=== PATIENT | female | born 1995 | race Caucasian/White ===

== ENCOUNTER → 2020-01-04 | Outpatient (CLI) | payer OTHER ==
[2019-09-04 18:00] VITALS: BP 110/62
[~2020-01-04] MED LIST: CEPH500C PO; FAMO-63 PO; METR500T PO; ONDA4TAB10 SL; ONDA4TAB12 PO; SULF1TAB24 PO
[2020-01-04 10:33] LABS: BASO % 0 % (0-3); EOS # 0.1 x10^3/uL (0.0-0.7); EOS % 1 % (0-3); HEMATOCRIT 39.6 % (36.0-47.0); HEMOGLOBIN 13.6 g/dL (12.0-15.5); LYMPH # 1.6 x10^3/uL (1.0-4.8); LYMPH % 18 % (24-48); MEAN CORPUSCULAR HEMOGLOBIN 30 pg (25-35); MEAN CORPUSCULAR HGB CONC 34 g/dL (31-37); MEAN CORPUSCULAR VOLUME 87 fL (79-100); MONO # 0.6 x10^3/uL (0.0-1.1); MONO % 7 % (0-9); NEUT # 6.8 x10^3/uL (1.8-7.7); NEUT % 74 % (31-73); PLATELET COUNT 281 x10^3/uL (140-400); RED BLOOD COUNT 4.58 x10^6/uL (3.50-5.40); RED CELL DISTRIBUTION WIDTH 13.2 % (11.5-14.5); WHITE BLOOD COUNT 9.2 x10^3/uL (4.0-11.0)
== END ==
LOC: MERGE 09:03 → LAB 09:03
PROVIDERS: ATTEND Obstetrics & Gynecology
DX: O09.90 Supervision of high risk pregnancy, unspecified, unspecified trimester (principal); Z3A.00 Weeks of gestation of pregnancy not specified
CPT/HCPCS: 36415; 82950; 85025

== ENCOUNTER 2020-02-15 10:18 | Inpatient (IN) | payer OTHER ==
[~2020-02-15] VITALS: Ht 160 cm; Wt 93.0 kg
[2020-02-15 10:45] VITALS: BP 133/74
[2020-02-15 11:12] LABS: CREATININE,RANDOM URINE 185.5 mg/dL (Not Establ.)
[2020-02-15 11:31] LABS: BASO # 0.1 x10^3/uL (0.0-0.2); BASO % 1 % (0-3); EOS # 0.1 x10^3/uL (0.0-0.7); EOS % 1 % (0-3); HEMATOCRIT 38.2 % (36.0-47.0); HEMOGLOBIN 13.3 g/dL (12.0-15.5); LYMPH # 1.5 x10^3/uL (1.0-4.8); LYMPH % 16 % (24-48); MEAN CORPUSCULAR HEMOGLOBIN 30 pg (25-35); MEAN CORPUSCULAR HGB CONC 35 g/dL (31-37); MEAN CORPUSCULAR VOLUME 85 fL (79-100); MONO # 0.8 x10^3/uL (0.0-1.1); MONO % 8 % (0-9); NEUT # 6.8 x10^3/uL (1.8-7.7); NEUT % 74 % (31-73); PLATELET COUNT 261 x10^3/uL (140-400); RED BLOOD COUNT 4.48 x10^6/uL (3.50-5.40); RED CELL DISTRIBUTION WIDTH 13.7 % (11.5-14.5); WHITE BLOOD COUNT 9.2 x10^3/uL (4.0-11.0)
[2020-02-15 11:43] LABS: ALBUMIN 2.2 g/dL (3.4-5.0); ALBUMIN/GLOBULIN RATIO 0.5 (1.0-1.7); CALCIUM 8.5 mg/dL (8.5-10.1); CREATININE 0.8 mg/dL (0.6-1.0); GFR 88.9; POTASSIUM 4.5 mmol/L (3.5-5.1); TOTAL BILIRUBIN 0.2 mg/dL (0.2-1.0); TOTAL PROTEIN 6.5 g/dL (6.4-8.2)
--- NOTE | 2020-02-15 12:03 | PDOC1 ---
OB - History Hx of Present Care: Good Care Ultrasounds: Normal mid trimester US Obstetrical Complications: Pre-eclampsia Medical Complications: None Past Family/Social History * Past Medical, Surgical, Family and Obstetric Histories reviewed from chart. Rubella: Immune RPR/VDRL: Negative GBS Status: Negative HBsAG: Negative OB - Chief Complaint & HPI Date of Admission: Date of Admission: Feb 15, 2020 at 10:18 Chief Complaint/History : 2 Para: 0 EGA: 38 Reason for admission: induction of labor (preeclampsia) Admission Nurse Assessment Rev: Yes OB - Admission Exam Physical Exam HEENT: Normal Heart: Regular Rate Lungs: Clear Abdomen: Gravid, Non tender, Soft Extremities: Edema Reflexes: Normal Cervical Dilatation: 3cm Effacement: 75% Station: -3 Membranes: Intact Heart Rate: Normal Accelerations: Accelerations Present Decelerations: No decelerations Contractions on Admission: None Text A: 38 wks IUP Preeclampsia P: Admit for induction pitocin. Start magnesium sulfate. JELENA WILSON Jr, MD Feb 15, 2020 12:03
[2020-02-15] MEDS ORDERED: fentaNYL PF VIAL 100 MCG/2 ML VIAL IVP PRN (12:30)
[2020-02-15] MEDS ORDERED: OXYTOCIN 30 UNIT/500 ML PREMIX 500 ML IV PRN ×2 (12:30)
[2020-02-15] MEDS ORDERED: IBUPROFEN 400 MG TABLET. PO PRN (12:30)
[2020-02-15] MEDS ORDERED: ONDANSETRON PF 4 MG/2 ML VIAL. IVP PRN (12:30)
[2020-02-15] MEDS ORDERED: LIDOCAINE 1% PF 30 ML VIAL. INJ PRN (12:30)
[2020-02-15] MEDS ORDERED: BUTORPHANOL 2 MG/ML VIAL. IVP PRN ×2 (12:30)
[2020-02-15] MEDS ORDERED: 0.9 % SODIUM CHLORIDE 10 ML DISP.SYRIN. IV PRN (12:30)
[2020-02-15] MEDS ORDERED: TERBUTALINE 1 MG/ML VIAL. SQ PRN (12:30)
[2020-02-15] MEDS ORDERED: MAGNESIUM SULFATE 4GM 100 ML IV ONE (12:30)
[2020-02-15] MEDS ORDERED: PREN-2 PO (13:10)
[2020-02-15] MEDS: IV RINGERS,LACTATED 1000ML 1,000 ML IV SCH ×2 (13:14→23:39)
[2020-02-15] MEDS ORDERED: CITRIC ACID/SODIUM CITRATE 30 ML SOLUTION. PO ONE (13:45)
[2020-02-15] MEDS ORDERED: SODIUM BICARB ADULT 8.4% 50 MEQ/50 ML DISP.SYRIN. ONE (14:08)
[2020-02-15] MEDS: MAGNESIUM SULFATE 20GM 500 ML IV SCH (14:23)
[2020-02-15] MEDS: fentaNYL PF VIAL 100 MCG/2 ML VIAL IVP PRN ×2 (22:06→23:34)
[2020-02-16] MEDS ORDERED: IV RINGERS,LACTATED 1000ML 1,000 ML IV ONE (01:10)
[2020-02-16] MEDS ORDERED: ROPIVacaine 0.2% PF 10 ML VIAL. ONE ×2 (01:12→02:00)
[2020-02-16] MEDS ORDERED: ePHEDrine PF IN SALINE 50 MG/10 ML SYRINGE. IV PRN (01:15)
[2020-02-16] MEDS ORDERED: NALOXONE 0.4 MG/ML VIAL. IV PRN (01:15)
[2020-02-16] MEDS ORDERED: ONDANSETRON PF 4 MG/2 ML VIAL. IV PRN (01:15)
[2020-02-16] MEDS: L&D EPIDURAL SYRINGE 50 ML EPID PRN ×2 (01:36→04:38)
[2020-02-16] MEDS: MAGNESIUM SULFATE 20GM 500 ML IV SCH ×2 (01:39→13:36)
--- NOTE | 2020-02-16 06:28 | PDOC ---
VAGINAL DELIVERY DATE DATE: 02/16/20 TIME: 06:26 : 2 Para: 1 EGA: 38 VAGINAL DELIVERY: VTX VACCUM ASSISTED: No PLACENTA: Spontaneous 8/9 SEX: Male WEIGHT Weight [ 3200 gm] Nuchal Cord: No Amniotic Fluid: Clear PAIN: Epidural EPISIOTOMY: No EXTENSION: Yes (Left vaginal sidewall laceration) REPAIRED WITH 2-0 vicryl EBL 300 ml COMPLICATIONS none CONDITION pt. stable Signs of Intrauterine Infectio: None Shoulder Dystocia: No JELENA WILSON Jr, MD Feb 16, 2020 06:27
[2020-02-16] MEDS ORDERED: MAG HYDROX/ALUMINUM HYD/SIMETH 30 ML ORAL.SUSP PO PRN (06:30)
[2020-02-16] MEDS ORDERED: MMR per PROTOCOL. MC PRN (06:30)
[2020-02-16] MEDS ORDERED: oxyCODONE/APAP 5/325 1 TAB TABLET PO PRN (06:30)
[2020-02-16] MEDS ORDERED: ACETAMINOPHEN 325 MG TABLET. PO PRN (06:30)
[2020-02-16] MEDS ORDERED: ZOLPIDEM 5 MG TABLET. PO PRN (06:30)
[2020-02-16] MEDS ORDERED: TDaP (Adacel) per PROTOCOL. MC PRN (06:30)
[2020-02-16] MEDS ORDERED: MAGNESIUM HYDROXIDE 2,400 MG/30 ML ORAL.SUSP. PO PRN (06:30)
[2020-02-16] MEDS ORDERED: BENZOCAINE 20% TOPICAL AEROSOL SPRAY 57GM CAN. TP PRN (06:30)
[2020-02-16] MEDS ORDERED: PHENYLEPH/MINERAL OIL/PETROLAT RECTAL OINTMENT TUBE. RC PRN (06:30)
[2020-02-16] MEDS ORDERED: SIMETHICONE 80 MG TAB.CHEW PO PRN (06:30)
[2020-02-16] MEDS ORDERED: 0.9 % SODIUM CHLORIDE 10 ML DISP.SYRIN. IV PRN (06:30)
[2020-02-16] MEDS ORDERED: OXYTOCIN 30 UNIT/500 ML PREMIX 500 ML IV PRN (06:30)
[2020-02-16] MEDS ORDERED: diphenhydrAMINE HCL 25 MG CAPSULE PO PRN (06:30)
[2020-02-16] MEDS ORDERED: HYDROCORTISONE 1% TOPICAL OINTMENT 30GM TUBE. TP PRN (06:30)
[2020-02-16] MEDS: IBUPROFEN 400 MG TABLET. PO PRN (08:36)
[2020-02-16] MEDS ORDERED: MULTIVITAMIN with MINERAL TABLET. PO SCH (09:00)
[2020-02-16 11:05] LABS: BASO # 0.1 x10^3/uL (0.0-0.2); BASO % 0 % (0-3); EOS % 0 % (0-3); HEMATOCRIT 33.8 % (36.0-47.0); HEMOGLOBIN 11.5 g/dL (12.0-15.5); LYMPH # 0.8 x10^3/uL (1.0-4.8); LYMPH % 3 % (24-48); MEAN CORPUSCULAR HEMOGLOBIN 29 pg (25-35); MEAN CORPUSCULAR HGB CONC 34 g/dL (31-37); MEAN CORPUSCULAR VOLUME 86 fL (79-100); MONO # 1.6 x10^3/uL (0.0-1.1); MONO % 7 % (0-9); NEUT # 20.4 x10^3/uL (1.8-7.7); NEUT % 89 % (31-73); PLATELET COUNT 254 x10^3/uL (140-400); RED BLOOD COUNT 3.92 x10^6/uL (3.50-5.40); RED CELL DISTRIBUTION WIDTH 13.5 % (11.5-14.5); WHITE BLOOD COUNT 22.8 x10^3/uL (4.0-11.0)
[2020-02-16 11:33] LABS: % BANDS 9 % (0-9); % LYMPHS 2 % (24-48); % MONOS 3 % (0-10); % SEGS 86 % (35-66); ALBUMIN 1.8 g/dL (3.4-5.0); ALBUMIN/GLOBULIN RATIO 0.5 (1.0-1.7); CREATININE 1.1 mg/dL (0.6-1.0); GFR 61.6; POTASSIUM 3.6 mmol/L (3.5-5.1); TOTAL BILIRUBIN 0.3 mg/dL (0.2-1.0); TOTAL PROTEIN 5.4 g/dL (6.4-8.2)
[2020-02-16 11:34] LABS: PLT ESTIMATE ADEQUATE (ADEQUATE)
[2020-02-16 15:35] VITALS: BP 138/73
[2020-02-16] MEDS: IV RINGERS,LACTATED 1000ML 1,000 ML IV SCH (16:50)
[2020-02-16 17:30] VITALS: BP 139/78
[2020-02-16 19:30] VITALS: BP 135/68
[2020-02-16 21:25] VITALS: BP 147/88
[2020-02-16 22:25] VITALS: BP 113/65
[2020-02-16 23:45] VITALS: BP 131/72
[2020-02-17] MEDS: MAGNESIUM SULFATE 20GM 500 ML IV SCH (00:15)
[2020-02-17 02:13] VITALS: BP 121/51
[2020-02-17 04:19] VITALS: BP 116/57
[2020-02-17 05:28] LABS: BASO % 0 % (0-3); EOS # 0.1 x10^3/uL (0.0-0.7); EOS % 1 % (0-3); HEMATOCRIT 29.2 % (36.0-47.0); HEMOGLOBIN 10.2 g/dL (12.0-15.5); LYMPH # 1.9 x10^3/uL (1.0-4.8); LYMPH % 13 % (24-48); MEAN CORPUSCULAR HEMOGLOBIN 30 pg (25-35); MEAN CORPUSCULAR HGB CONC 35 g/dL (31-37); MEAN CORPUSCULAR VOLUME 86 fL (79-100); MONO # 1.3 x10^3/uL (0.0-1.1); MONO % 9 % (0-9); NEUT % 77 % (31-73); PLATELET COUNT 217 x10^3/uL (140-400); RED BLOOD COUNT 3.41 x10^6/uL (3.50-5.40); RED CELL DISTRIBUTION WIDTH 13.8 % (11.5-14.5); WHITE BLOOD COUNT 14.3 x10^3/uL (4.0-11.0)
[2020-02-17 05:50] VITALS: BP 112/60
--- NOTE | 2020-02-17 05:51 | NUR ---
RN NOTE: Patient has 2+ edema bilaterally on upper and lower legs, ankles and feet.
[2020-02-17 05:52] LABS: ALBUMIN 1.8 g/dL (3.4-5.0); ALBUMIN/GLOBULIN RATIO 0.6 (1.0-1.7); ALK PHOS 166 U/L (46-116); ALT (SGPT) 19 U/L (14-59); ANION GAP 8 (6-14); AST (SGOT) 25 U/L (15-37); BLOOD UREA NITROGEN 9 mg/dL (7-20); BUN/CREATININE RATIO 11 (6-20); CALCIUM 6.5 mg/dL (8.5-10.1); CARBON DIOXIDE 24 mmol/L (21-32); CHLORIDE 104 mmol/L (98-107); CREATININE 0.8 mg/dL (0.6-1.0); GFR 88.9; GLUCOSE 117 mg/dL (70-99); POTASSIUM 4.1 mmol/L (3.5-5.1); SODIUM 136 mmol/L (136-145); TOTAL BILIRUBIN < 0.1 mg/dL (0.2-1.0); TOTAL PROTEIN 4.6 g/dL (6.4-8.2)
[2020-02-17] MEDS: IBUPROFEN 400 MG TABLET. PO PRN ×2 (07:21→17:59)
[2020-02-17] MEDS: DOCUSATE SODIUM 100 MG CAPSULE. PO PRN ×2 (07:21→18:00)
[2020-02-17] MEDS: FERROUS SULFATE 325 MG TABLET. PO SCH ×2 (07:21→17:59)
--- NOTE | 2020-02-17 08:44 | PDOC ---
OB Progress Note Date of Service 02/17/20 Time of Evaluation 0845 Notes Pt. feeling better. No CP, H/A or SOB. Pain controlled. Lab Laboratory Tests Test 02/15/20 10:35 02/15/20 11:06 02/15/20 11:15 02/15/20 13:00 Urine Random Creatinine 185.5 mg/dL (Not Establ.) Urine Random Total Protein 70.5 mg/dL (Not Establ.) Urine Protein/Creatinine Ratio 380 mg/g (0-200) Coronavirus (COVID-19)(PCR) Negative (NEGATIVE) White Blood Count 9.2 x10^3/uL (4.0-11.0) Red Blood Count 4.48 x10^6/uL (3.50-5.40) Hemoglobin 13.3 g/dL (12.0-15.5) Hematocrit 38.2 % (36.0-47.0) Mean Corpuscular Volume 85 fL (79-100) Mean Corpuscular Hemoglobin 30 pg (25-35) Mean Corpuscular Hemoglobin Concent 35 g/dL (31-37) Red Cell Distribution Width 13.7 % (11.5-14.5) Platelet Count 261 x10^3/uL (140-400) Neutrophils (%) (Auto) 74 % (31-73) Lymphocytes (%) (Auto) 16 % (24-48) Monocytes (%) (Auto) 8 % (0-9) Eosinophils (%) (Auto) 1 % (0-3) Basophils (%) (Auto) 1 % (0-3) Neutrophils # (Auto) 6.8 x10^3/uL (1.8-7.7) Lymphocytes # (Auto) 1.5 x10^3/uL (1.0-4.8) Monocytes # (Auto) 0.8 x10^3/uL (0.0-1.1) Eosinophils # (Auto) 0.1 x10^3/uL (0.0-0.7) Basophils # (Auto) 0.1 x10^3/uL (0.0-0.2) Sodium Level 132 mmol/L (136-145) Potassium Level 4.5 mmol/L (3.5-5.1) Chloride Level 102 mmol/L (98-107) Carbon Dioxide Level 21 mmol/L (21-32) Anion Gap 9 (6-14) Blood Urea Nitrogen 10 mg/dL (7-20) Creatinine 0.8 mg/dL (0.6-1.0) Estimated GFR (Cockcroft-Gault) 88.9 BUN/Creatinine Ratio 13 (6-20) Glucose Level 90 mg/dL (70-99) Calcium Level 8.5 mg/dL (8.5-10.1) Total Bilirubin 0.2 mg/dL (0.2-1.0) Aspartate Amino Transf (AST/SGOT) 21 U/L (15-37) Alanine Aminotransferase (ALT/SGPT) 23 U/L (14-59) Alkaline Phosphatase 200 U/L (46-116) Total Protein 6.5 g/dL (6.4-8.2) Albumin 2.2 g/dL (3.4-5.0) Albumin/Globulin Ratio 0.5 (1.0-1.7) Treponema pallidum Antibody Nonreactive (Nonreactive) Test 02/16/20 10:55 02/17/20 05:20 White Blood Count 22.8 x10^3/uL (4.0-11.0) 14.3 x10^3/uL (4.0-11.0) Red Blood Count 3.92 x10^6/uL (3.50-5.40) 3.41 x10^6/uL (3.50-5.40) Hemoglobin 11.5 g/dL (12.0-15.5) 10.2 g/dL (12.0-15.5) Hematocrit 33.8 % (36.0-47.0) 29.2 % (36.0-47.0) Mean Corpuscular Volume 86 fL (79-100) 86 fL (79-100) Mean Corpuscular Hemoglobin 29 pg (25-35) 30 pg (25-35) Mean Corpuscular Hemoglobin Concent 34 g/dL (31-37) 35 g/dL (31-37) Red Cell Distribution Width 13.5 % (11.5-14.5) 13.8 % (11.5-14.5) Platelet Count 254 x10^3/uL (140-400) 217 x10^3/uL (140-400) Neutrophils (%) (Auto) 89 % (31-73) 77 % (31-73) Lymphocytes (%) (Auto) 3 % (24-48) 13 % (24-48) Monocytes (%) (Auto) 7 % (0-9) 9 % (0-9) Eosinophils (%) (Auto) 0 % (0-3) 1 % (0-3) Basophils (%) (Auto) 0 % (0-3) 0 % (0-3) Neutrophils # (Auto) 20.4 x10^3/uL (1.8-7.7) 11.0 x10^3/uL (1.8-7.7) Lymphocytes # (Auto) 0.8 x10^3/uL (1.0-4.8) 1.9 x10^3/uL (1.0-4.8) Monocytes # (Auto) 1.6 x10^3/uL (0.0-1.1) 1.3 x10^3/uL (0.0-1.1) Eosinophils # (Auto) 0.0 x10^3/uL (0.0-0.7) 0.1 x10^3/uL (0.0-0.7) Basophils # (Auto) 0.1 x10^3/uL (0.0-0.2) 0.0 x10^3/uL (0.0-0.2) Segmented Neutrophils % 86 % (35-66) Band Neutrophils % 9 % (0-9) Lymphocytes % 2 % (24-48) Monocytes % 3 % (0-10) Platelet Estimate Adequate (ADEQUATE) Sodium Level 131 mmol/L (136-145) 136 mmol/L (136-145) Potassium Level 3.6 mmol/L (3.5-5.1) 4.1 mmol/L (3.5-5.1) Chloride Level 100 mmol/L (98-107) 104 mmol/L (98-107) Carbon Dioxide Level 22 mmol/L (21-32) 24 mmol/L (21-32) Anion Gap 9 (6-14) 8 (6-14) Blood Urea Nitrogen 10 mg/dL (7-20) 9 mg/dL (7-20) Creatinine 1.1 mg/dL (0.6-1.0) 0.8 mg/dL (0.6-1.0) Estimated GFR (Cockcroft-Gault) 61.6 88.9 BUN/Creatinine Ratio 9 (6-20) 11 (6-20) Glucose Level 137 mg/dL (70-99) 117 mg/dL (70-99) Calcium Level 7.0 mg/dL (8.5-10.1) 6.5 mg/dL (8.5-10.1) Total Bilirubin 0.3 mg/dL (0.2-1.0) < 0.1 mg/dL (0.2-1.0) Aspartate Amino Transf (AST/SGOT) 25 U/L (15-37) 25 U/L (15-37) Alanine Aminotransferase (ALT/SGPT) 19 U/L (14-59) 19 U/L (14-59) Alkaline Phosphatase 172 U/L (46-116) 166 U/L (46-116) Total Protein 5.4 g/dL (6.4-8.2) 4.6 g/dL (6.4-8.2) Albumin 1.8 g/dL (3.4-5.0) 1.8 g/dL (3.4-5.0) Albumin/Globulin Ratio 0.5 (1.0-1.7) 0.6 (1.0-1.7) Laboratory Tests Test 02/16/20 10:55 02/17/20 05:20 White Blood Count 22.8 x10^3/uL (4.0-11.0) 14.3 x10^3/uL (4.0-11.0) Red Blood Count 3.92 x10^6/uL (3.50-5.40) 3.41 x10^6/uL (3.50-5.40) Hemoglobin 11.5 g/dL (12.0-15.5) 10.2 g/dL (12.0-15.5) Hematocrit 33.8 % (36.0-47.0) 29.2 % (36.0-47.0) Mean Corpuscular Volume 86 fL (79-100) 86 fL (79-100) Mean Corpuscular Hemoglobin 29 pg (25-35) 30 pg (25-35) Mean Corpuscular Hemoglobin Concent 34 g/dL (31-37) 35 g/dL (31-37) Red Cell Distribution Width 13.5 % (11.5-14.5) 13.8 % (11.5-14.5) Platelet Count 254 x10^3/uL (140-400) 217 x10^3/uL (140-400) Neutrophils (%) (Auto) 89 % (31-73) 77 % (31-73) Lymphocytes (%) (Auto) 3 % (24-48) 13 % (24-48) Monocytes (%) (Auto) 7 % (0-9) 9 % (0-9) Eosinophils (%) (Auto) 0 % (0-3) 1 % (0-3) Basophils (%) (Auto) 0 % (0-3) 0 % (0-3) Neutrophils # (Auto) 20.4 x10^3/uL (1.8-7.7) 11.0 x10^3/uL (1.8-7.7) Lymphocytes # (Auto) 0.8 x10^3/uL (1.0-4.8) 1.9 x10^3/uL (1.0-4.8) Monocytes # (Auto) 1.6 x10^3/uL (0.0-1.1) 1.3 x10^3/uL (0.0-1.1) Eosinophils # (Auto) 0.0 x10^3/uL (0.0-0.7) 0.1 x10^3/uL (0.0-0.7) Basophils # (Auto) 0.1 x10^3/uL (0.0-0.2) 0.0 x10^3/uL (0.0-0.2) Segmented Neutrophils % 86 % (35-66) Band Neutrophils % 9 % (0-9) Lymphocytes % 2 % (24-48) Monocytes % 3 % (0-10) Platelet Estimate Adequate (ADEQUATE) Sodium Level 131 mmol/L (136-145) 136 mmol/L (136-145) Potassium Level 3.6 mmol/L (3.5-5.1) 4.1 mmol/L (3.5-5.1) Chloride Level 100 mmol/L (98-107) 104 mmol/L (98-107) Carbon Dioxide Level 22 mmol/L (21-32) 24 mmol/L (21-32) Anion Gap 9 (6-14) 8 (6-14) Blood Urea Nitrogen 10 mg/dL (7-20) 9 mg/dL (7-20) Creatinine 1.1 mg/dL (0.6-1.0) 0.8 mg/dL (0.6-1.0) Estimated GFR (Cockcroft-Gault) 61.6 88.9 BUN/Creatinine Ratio 9 (6-20) 11 (6-20) Glucose Level 137 mg/dL (70-99) 117 mg/dL (70-99) Calcium Level 7.0 mg/dL (8.5-10.1) 6.5 mg/dL (8.5-10.1) Total Bilirubin 0.3 mg/dL (0.2-1.0) < 0.1 mg/dL (0.2-1.0) Aspartate Amino Transf (AST/SGOT) 25 U/L (15-37) 25 U/L (15-37) Alanine Aminotransferase (ALT/SGPT) 19 U/L (14-59) 19 U/L (14-59) Alkaline Phosphatase 172 U/L (46-116) 166 U/L (46-116) Total Protein 5.4 g/dL (6.4-8.2) 4.6 g/dL (6.4-8.2) Albumin 1.8 g/dL (3.4-5.0) 1.8 g/dL (3.4-5.0) Albumin/Globulin Ratio 0.5 (1.0-1.7) 0.6 (1.0-1.7) Medications Current Medications Sodium Chloride (Normal Saline Flush) 3 ml QSHIFT PRN IV AFTER MEDS AND BLOOD DRAWS; Start 02/15/20 at 12:30 Ringer's Solution 1,000 ml @ 125 mls/hr Q8H IV Last administered on 02/16/20at 16:50; Start 02/15/20 at 12:21 Butorphanol Tartrate (Stadol) 1 mg PRN Q1HR PRN IVP mild to moderate labor pain; Start 02/15/20 at 12:30 Butorphanol Tartrate (Stadol) 2 mg PRN Q1HR PRN IVP Severe labor pain; Start 02/15/20 at 12:30 Fentanyl Citrate (Fentanyl 2ml Vial) 50 mcg PRN Q30MIN PRN IVP Mild to moderate pain; Start 02/15/20 at 12:30 Fentanyl Citrate (Fentanyl 2ml Vial) 100 mcg PRN Q30MIN PRN IVP Severe pain Last administered on 02/15/20at 23:34; Start 02/15/20 at 12:30 Ondansetron HCl (Zofran) 4 mg PRN Q4HRS PRN IVP NAUSEA/VOMITING Last administered on 02/15/20at 21:28; Start 02/15/20 at 12:30 Terbutaline Sulfate (Brethine) 0.25 mg 1X PRN PRN SQ SEE COMMENTS; Start 02/15/20 at 12:30; Stop 02/16/20 at 12:29; Status DC Lidocaine HCl (Xylocaine 1% Pf 30ml Vial) 30 ml 1X PRN PRN INJ SEE COMMENTS; Start 02/15/20 at 12:30; Stop 02/17/20 at 12:29 Oxytocin/Sodium Chloride 500 ml @ 0 mls/hr CONT PRN IV SEE I/O RECORD Last administered on 02/15/20at 13:27; Start 02/15/20 at 12:30 Oxytocin/Sodium Chloride 500 ml @ 0 mls/hr CONT PRN PRN IV Post delivery bleeding; Start 02/15/20 at 12:30 Ibuprofen (Motrin) 800 mg PRN Q6HRS PRN PO PAIN; Start 02/15/20 at 12:30; Stop 02/16/20 at 06:40; Status DC Magnesium Sulfate 100 ml @ 25 mls/hr 1X ONCE IV Last administered on 02/15/20at 13:28; Start 02/15/20 at 12:30; Stop 02/15/20 at 16:29; Status DC Magnesium Sulfate 500 ml @ 50 mls/hr Q10H IV Last administered on 02/17/20at 00:15; Start 02/15/20 at 12:30 Citric Acid/ Sodium Citrate (Bicitra) 30 ml 1X ONCE PO Last administered on 02/15/20at 13:51; Start 02/15/20 at 13:45; Stop 02/15/20 at 13:56; Status DC Sodium Bicarbonate (Sodium Bicarb Adult 8.4% Syr) 50 meq STK-MED ONCE .ROUTE ; Start 02/15/20 at 14:08; Stop 02/15/20 at 14:09; Status Cancel Ringer's Solution 1,000 ml @ 0 mls/hr Q0M ONCE IV Last administered on 02/16/20at 02:15; Start 02/16/20 at 01:10; Stop 02/16/20 at 01:14; Status DC Ephedrine Sulfate (ePHEDrine PF IN SALINE SYRINGE) 10 mg PRN Q2MIN PRN IV IF SBP<90; Start 02/16/20 at 01:15 Naloxone HCl (Narcan) 0.04 mg PRN Q1MIN PRN IV SEE COMMENTS; Start 02/16/20 at 01:15 Fentanyl Citrate 50 ml @ 14 mls/hr CONT PRN EPID PAIN Last administered on 02/16/20at 04:38; Start 02/16/20 at 01:15 Ondansetron HCl (Zofran) 4 mg PRN Q6HRS PRN IV NAUSEA/VOMITING; Start 02/16/20 at 01:15 Ropivacaine (Naropin 0.2%) 10 ml STK-MED ONCE .ROUTE ; Start 02/16/20 at 01:12; Stop 02/16/20 at 01:12; Status DC Sodium Chloride (Normal Saline Flush) 10 ml QSHIFT PRN IV AFTER MEDS AND BLOOD DRAWS; Start 02/16/20 at 06:30 Oxytocin/Sodium Chloride 500 ml @ 62.5 mls/hr CONT PRN IV SEE I/O RECORD; Start 02/16/20 at 06:30; Stop 02/16/20 at 14:29; Status DC Acetaminophen (Tylenol) 650 mg PRN Q6HRS PRN PO MILD PAIN / TEMP > 100.3'F; Start 02/16/20 at 06:30 Ibuprofen (Motrin) 800 mg PRN Q8HRS PRN PO INFLAMMATION/PAIN PREVENTION Last administered on 02/17/20at 07:21; Start 02/16/20 at 06:30 Docusate Sodium (Colace) 100 mg PRN BID PRN PO HARD STOOL Last administered on 02/17/20at 07:21; Start 02/16/20 at 06:30 Magnesium Hydroxide (Milk Of Magnesia) 2,400 mg PRN DAILY PRN PO CONSTIPATION; Start 02/16/20 at 06:30 Al Hydroxide/Mg Hydroxide (Mylanta Plus Xs) 30 ml PRN Q4HRS PRN PO HEARTBURN / GAS; Start 02/16/20 at 06:30 Simethicone (Gas-X) 80 mg PRN AFTMEALHC PRN PO GAS / BLOATING; Start 02/16/20 at 06:30 Diphenhydramine HCl (Benadryl) 25 mg PRN Q6HRS PRN PO ITCHING; Start 02/16/20 at 06:30 Benzocaine (Americaine) 1 spray PRN QID PRN TP TOPICAL PAIN; Start 02/16/20 at 06:30 Phenyleph/Shark Oil/Min Oil/Petrol (Preparation H) 1 kurt PRN QID PRN RC RECTAL PAIN; Start 02/16/20 at 06:30 Hydrocortisone (Cortaid) 1 kurt PRN QID PRN TP PERINEAL PAIN; Start 02/16/20 at 06:30 Ferrous Sulfate (Feosol) 325 mg BIDWMEALS PO Last administered on 02/17/20at 07:21; Start 02/17/20 at 08:00 Zolpidem Tartrate (Ambien) 5 mg PRN QHS PRN PO INSOMNIA, MAY REPEAT X1; Start 02/16/20 at 06:30 Info (Do NOT chart on this placeholder) 1 ea 1X PRN PRN MC SEE COMMENTS; Start 02/16/20 at 06:30 Info (Do NOT chart on this placeholder) 1 ea 1X PRN PRN MC SEE COMMENTS; Start 02/16/20 at 06:30 Oxycodone/ Acetaminophen (Percocet 5/325) 2 tab PRN Q4HRS PRN PO MODERATE PAIN, SEVERE PAIN; Start 02/16/20 at 06:30 Multivitamins (Thera M Plus) 1 tab DAILY PO ; Start 02/16/20 at 09:00; Stop 02/17/20 at 04:35; Status DC Ropivacaine (Naropin 0.2%) 10 ml STK-MED ONCE .ROUTE ; Start 02/16/20 at 02:00; Stop 02/16/20 at 09:05; Status DC Multivit/ Folic Acid/Iron (Multivitamin ) 1 tab DAILY PO ; Start 02/17/20 at 09:00 Active Scripts Active Reported Prenatabs Rx Tablet ( Vit #76/Iron,Carb/Fa) 1 Each Tablet 1 Tab PO DAILY 30 Days Exam Abd: soft, non tender, fundus firm Assessment PPD#1 s/p Preeclampsia: labs improving Plan of Care: Continue current Tx, Mgmt JELENA WILSON Jr, MD Feb 17, 2020 08:44
[2020-02-17] MEDS ORDERED: PRENATAL MULTIVITAMIN TABLET. PO SCH (09:00)
[2020-02-17 13:22] VITALS: BP 129/86
[2020-02-17 18:00] VITALS: BP 125/87
[2020-02-17 21:45] VITALS: BP 144/91
[2020-02-18 03:53] VITALS: BP 119/82
[2020-02-18 10:05] VITALS: BP 108/64
--- NOTE | 2020-02-18 11:41 | PDOC3 ---
OB DISCHARGE SUMMARY DATE OF ADMISSION: 02/15/20 DATE OF DISCHARGE: 02/18/20 REASON FOR ADMISSION: Induction of labor (preeclampsia) INTRAPARTUM PROCEDURES: Spontanous Vag Deliv DISCHARGE DIAGNOSIS: Term Delivered DISCHARGE INFORMATION: Activity (ad luis alfredo), Diet (regular), Instructions (pelvic rest x 6 wks) HOSPITAL COURSE Term gestation with preeclampsia delivered vaginally without complications. JELENA WILSON Jr, MD Feb 18, 2020 11:41
[2020-02-18] MEDS ORDERED: IBUP-1027 PO (11:43)
--- NOTE | 2020-02-18 11:43 | DISCH ---
DISCHARGE INSTRUCTIONS Condition on Discharge Condition on Discharge: Stable Activity After Discharge Activity Instructions for Disc: Activity as tolerated Lifting Instructions after Dis: No heavy lifting Driving Instructions after Dis: Do not drive today Diet after Discharge Diet after Discharge: Regular Contacting the [facility] after DC Call your doctor for: Concerns you may have Follow-Up Follow up with: Dr. Armstrong in 4 wks JELENA ARMSTRONG Jr, MD Feb 18, 2020 11:43
[2020-02-18 15:00] VITALS: BP 109/74
== END 2020-02-18 15:54 | disposition home or self-care (01) | DRG 807 ==
LOC: 3 SO LND 10:18 → OBSVTOIN 10:18 → 3 SO LND 02-16 14:30
PROVIDERS: ADMIT Obstetrics & Gynecology; ATTEND Obstetrics & Gynecology
PROC: 10E0XZZ Delivery of Products of Conception, External Approach (ICD-10-PCS; principal; 2020-02-15)
PROC: 0UQG7ZZ Repair Vagina, Via Natural or Artificial Opening (ICD-10-PCS; 2020-02-15)
PROC: 3E0R3BZ Introduction of Anesthetic Agent into Spinal Canal, Percutaneous Approach (ICD-10-PCS; 2020-02-15)
PROC: 3E0R33Z Introduction of Anti-inflammatory into Spinal Canal, Percutaneous Approach (ICD-10-PCS; 2020-02-15)
DX: O14.94 Unspecified pre-eclampsia, complicating childbirth (principal); Z37.0 Single live birth; Z3A.38 38 weeks gestation of pregnancy; O71.4 Obstetric high vaginal laceration alone
CPT/HCPCS: 36415; 80053; 82570; 84156; 85007; 85025; 86592; 86850; 86900; 86901; J2405; J2590; J2795; J3010; J3475; J3490; J7120; U0003; G0378